=== PATIENT | female | born 1930 | race Caucasian/White ===

== ENCOUNTER 2017-09-26 14:55 | Emergency (ER) | payer MEDICARE, BC | END 2017-09-26 16:40 | LOC: BURERS 14:55 | DX: K62.3 Rectal prolapse (principal); I10 Essential (primary) hypertension; F03.90 Unspecified dementia, unspecified severity, without behavioral disturbance, psychotic disturbance, mood disturbance, and anxiety; Z86.711 Personal history of pulmonary embolism; Z79.899 Other long term (current) drug therapy | CPT/HCPCS: 99284 ==

== ENCOUNTER 2017-10-03 13:21 | Emergency (ER) | payer MEDICARE, BC ==
[2017-10-03] MEDS ORDERED: cefTRIAXone\\ROCEPHIN 2 GM VIAL ONE (13:50)
[2017-10-03] MEDS ORDERED: Sodium Chloride 0.9% 100 ML ONE (13:50)
[2017-10-03 14:06] LABS: #Lymphocytes 0.3 thou/uL (1.20-3.40); #Monocytes 0.2 thou/uL (0.11-0.59); #Neutrophils 7.7 thou/uL (1.40-6.50); %Basophils 0.3 % (0.0-1.0); %Eosinophils 0.1 % (0.0-10.0); %Lymphocytes 4.1 % (21.0-51.0); %Monocytes 2.7 % (0.0-10.0); %Neutrophils 92.8 % (42.0-75.0); Hemoglobin 11.6 g/dL (12.0-16.0); Mean Corpuscular HGB CONC 33.7 g/dL (32.0-36.0); Mean Corpuscular Hemoglobin 32.3 pg (27.0-31.0); Mean Platelet Volume 5.6 fL (7.4-10.4); Platelet Count 246 thou/uL (130-400); RBC Distribution Width 11.3 % (11.5-14.5); Red Blood Cell (RBC) Count 3.59 mill/uL (4.20-5.40); White Blood Cell (WBC) Count 8.3 thou/uL (4.8-10.8)
[2017-10-03 14:20] LABS: ALT (SGPT) 17 U/L (8-55); AST (SGOT) 16 U/L (5-34); Albumin 3.8 g/dL (3.4-4.8); Alkaline Phosphatase 62 U/L (40-150); Anion Gap 14 mmol/L (10-20); BUN (Urea Nitrogen) 17 mg/dL (9.8-20.1); Bilirubin, Total 0.3 mg/dL (0.2-1.2); Calc. Creatinine Clearance 0 mL/min (70-130); Calcium 8.9 mg/dL (7.8-10.44); Carbon Dioxide 23 mmol/L (23-31); Chloride 98 mmol/L (98-107); Estimated GFR-MDRD 82; Globulin 2.6 g/dL (2.4-3.5); Glucose 126 mg/dL (83-110); Potassium 4.1 mmol/L (3.5-5.1); Protein, Total 6.4 g/dL (6.0-8.3); Sodium 131 mmol/L (136-145)
[2017-10-03] MEDS ORDERED: Acetaminophen/Codeine 30-300mg Tablet ONE (14:22)
[2017-10-03] MEDS ORDERED: methylPREDNISolone Sod Succ/PF 125 MG/2 ML VIAL ONE (14:22)
--- NOTE | 2017-10-03 14:53 | RAD ---
PORTABLE CHEST: Date: 10/03/17 An AP portable film at 1347 hours is compared with the 03/26/16 study done at [facility]. FINDINGS: The heart is mildly enlarged and no different than before. There is no vascular congestion, edema, or pleural effusion. Elevation of the right hemidiaphragm is typical in this patient and is due to an e ventration. There is a questionable subcentimeter nodule overlying one of the ribs near the right hilum. I do not see a nodule here on the 2016 study. This may even be artifactual. Options would be to get a follow- up PA chest electively on this patient or do an elective CT in the future to remove all doubt. IMPRESSION: 1. No acute parenchymal changes. 2. Question of subcentimeter right lung nodule versus artifact. See above. POS: HOME
[2017-10-03 15:10] LABS: CKMB 4.7 ng/mL (0-6.6); Troponin I Less than 0.010 ng/mL (< 0.028)
== END 2017-10-03 16:14 | disposition home or self-care (01) ==
LOC: BURERS 13:21
DX: J20.9 Acute bronchitis, unspecified (principal); I10 Essential (primary) hypertension; F03.90 Unspecified dementia, unspecified severity, without behavioral disturbance, psychotic disturbance, mood disturbance, and anxiety; Z86.711 Personal history of pulmonary embolism; Z79.899 Other long term (current) drug therapy
CPT/HCPCS: 71010; 80053; 82553; 83605; 83880; 84484; 85025; 87040; 94640; 94760; 96361; 96365; 96375; J0696; J2930; J7050; J7620

== ENCOUNTER 2019-01-28 06:10 | Emergency (ER) | payer MEDICARE, BC ==
--- NOTE | 2019-01-28 07:38 | CT ---
CT HEAD NONCONTRAST: INDICATIONS: Fall with head and facial injury. Pain. Ecchymosis. FINDINGS: There is parenchymal atrophy and mild chronic ischemic disease. The ventricular system is age approp riate in size. No intracranial hemorrhage, mass effect, or midline shift. Reference separately dict ated facial CT for details regarding facial injury. IMPRESSION: No acute intracranial hemorrhage or mass effect. POS: RASHIDK
--- NOTE | 2019-01-28 07:40 | CT ---
CT FACIAL BONES WITHOUT CONTRAST: INDICATIONS: Facial injury. Ecchymosis and pain related to fall. FINDINGS: There is a large hematoma involving the frontal scalp and extending into the facial soft tissues, not ably at right periorbital, right buccal, and nasal soft tissues. No retrobulbar hematoma or mass eff ect. No displaced orbital wall fracture is seen. The zygomatic arches are maintained. No displaced fracture of either nasal bone. There is scattered paranasal sinus mucosal thickening. Evidence of periosteal thickening of the right maxillary sinus indicates a component of chronic sinusitis. IMPRESSION: Prominent soft tissue hematoma of the scalp and face. No displaced facial bone fracture visualized. POS: NWK
--- NOTE | 2019-01-28 07:43 | RAD ---
FRONTAL VIEW PELVIS: INDICATION: Fall with injury, pain. FINDINGS: There is osseous irregularity at the visualized proximal femur with a traversing right hip prosthesis , partially visualized. Osseous structures are demineralized. Each prosthetic femoral head remains within the acetabulum. There is curvature of the imaged lumbar spine. IMPRESSION: Osseous irregularity at the proximal, [place] intratrochanteric region of the postoperative right hip. This could reflect an acute periprosthetic fracture in the setting of pain. Correlate clinically a nd, as necessary, imaging followup may be obtained. POS: DANUTA
--- NOTE | 2019-01-28 07:44 | RAD ---
FRONTAL VIEW CHEST: INDICATION: Emergency exam related to fall, pain with injury. FINDINGS: There is no consolidation, effusion, or discrete pneumothorax. Lungs are hypoinflated limiting visua lization of the lung base. Cardiac silhouette is mildly enlarged. IMPRESSION: No definite acute intrathoracic process is identified. POS: RASHIDK
== END 2019-01-28 07:21 ==
LOC: BURERS 06:10
DX: S05.11XA Contusion of eyeball and orbital tissues, right eye, initial encounter (principal); I10 Essential (primary) hypertension; Z79.899 Other long term (current) drug therapy; W06.XXXA Fall from bed, initial encounter
CPT/HCPCS: 70450; 70486; 71045; 72170